=== PATIENT | female | born 1995 | race Caucasian/White ===

== ENCOUNTER → 2024-07-05 15:00 | Outpatient (REF) | payer BC, SELFPAY | LOC: PNTC 15:00 | PROVIDERS: ATTENDING PHYSICIAN Student in an Organized Health Care Education/Training Program | DX: O99.210 Obesity complicating pregnancy, unspecified trimester (principal) | CPT/HCPCS: 76801; 76813 ==

== ENCOUNTER → 2024-08-02 13:14 | Outpatient (REF) | payer BC, SELFPAY | LOC: PNTC 13:14 | PROVIDERS: ATTENDING PHYSICIAN Student in an Organized Health Care Education/Training Program | DX: O99.210 Obesity complicating pregnancy, unspecified trimester (principal) | CPT/HCPCS: 76805 ==

== ENCOUNTER → 2024-08-30 14:50 | Outpatient (REF) | payer BC, SELFPAY | LOC: PNTC 14:50 | PROVIDERS: ATTENDING PHYSICIAN Student in an Organized Health Care Education/Training Program | DX: O99.210 Obesity complicating pregnancy, unspecified trimester (principal) | CPT/HCPCS: 76811; 76817 ==

== ENCOUNTER → 2024-10-10 14:52 | Outpatient (REF) | payer BC, SELFPAY | LOC: PNTC 14:52 | PROVIDERS: ATTENDING PHYSICIAN Obstetrics & Gynecology | DX: O99.210 Obesity complicating pregnancy, unspecified trimester (principal) | CPT/HCPCS: 76816 ==

== ENCOUNTER → 2024-11-02 14:30 | Outpatient (REF) | payer BC, SELFPAY ==
--- NOTE | 2024-11-02 11:30 | PN.DIAED06 ---
Meal Plan - Gestational
- Breakfast
Gestational Diabetes Meal Plan Name: 1800 calories
Breakfast - Total Carbohydrate (grams): 30 (1 carb = 15 grams)
Breakfast - Starch Carbohydrate: 1 (carbs: starch, milk, fruit)
Breakfast - Fruit Carbohydrate: 0 (no fruit or juice before lunch)
Breakfast - Milk Carbohydrate: 1
Breakfast - Nonstarchy Vegetables: Yes
Breakfast - Meat/Protein: 1 (1 serving protein = 1 oz (7 g))
Breakfast - Fat: 2 (1 serving fat = 5 g)
- Morning Snack
Morning Snack - Total Carbohydrate (grams): 30
Morning Snack - Starch Carbohydrate: 1
Morning Snack - Fruit Carbohydrate: 0 (no fruit or juice before lunch)
Morning Snack - Milk Carbohydrate: 1
Morning Snack - Nonstarchy Vegetables: Yes
Morning Snack - Meat/Protein: 0.5
Morning Snack - Fat: 0
- Lunch
Lunch - Total Carbohydrate (grams): 45
Lunch - Starch Carbohydrate: 2
Lunch - Fruit Carbohydrate: 1
Lunch - Milk Carbohydrate: 0
Lunch - Nonstarchy Vegetables: Yes
Lunch - Meat/Protein: 2
Lunch - Fat: 1
- Afternoon Snack
Afternoon Snack - Total Carbohydrate (grams): 30
Afternoon Snack - Starch Carbohydrate: 1
Afternoon Snack - Fruit Carbohydrate: 1
Afternoon Snack - Milk Carbohydrate: 0
Afternoon Snack - Nonstarchy Vegetables: Yes
Afternoon Snack - Meat/Protein: 1
Afternoon Snack - Fat: 0
- Dinner
Dinner - Total Carbohydrate (grams): 45
Dinner - Starch Carbohydrate: 2
Dinner - Fruit Carbohydrate: 0
Dinner - Milk Carbohydrate: 1
Dinner - Nonstarchy Vegetables: Yes
Dinner - Meat/Protein: 2
Dinner - Fat: 2
- Evening Snack
Evening Snack - Total Carbohydrate (grams): 30
Evening Snack - Starch Carbohydrate: 1
Evening Snack - Fruit Carbohydrate: 0
Evening Snack - Milk Carbohydrate: 1
Evening Snack - Nonstarchy Vegetables: Yes
Evening Snack - Meat/Protein: 1
Evening Snack - Fat: 1
Notes:
BS GOALS
Fasting 60-90 (60 -95 acceptable)
1 hour after eating < 120 (< 140 acceptable)
2 hours after eating < 120
--- NOTE | 2024-11-02 15:34 | PN.DE ---
Diabetes Education
- -
11/02/2024 GESTATIONAL DIABETES CONSULT
Met with patient today for medical nutrition therapy. G3,P2, currently at 30 weeks of gestation, with an KB of 01/13/2025. She had diet controlled GSD with second .
Explained glucose metabolism in body and what occurs during to cause increase blood sugar. Discussed importance of keeping BS well controlled to avoid complications to the baby during and after (macrosomia, hypoglycemia). Discussed
macronutrients, provided with 1800 benny GDM meal plan.
Discussed physical activity, she currently does not exercise. We discussed the benefits in lowering glucose, she states she can start swimming.
She presented to the appointment with Contour Next test strips and lancets. I supplied her with Contour Next meter and lancing device. Reviewed proper testing technique, testing sites and testing pattern. She is aware to test FBS and 2 hr pp
each meal. Expected results for FBS <95 mg/dl and 2 hr pp <120 mg/dl. Noted for blood sugar of 86 mg/dL 2 hrs after lunch. Log sheet provided for her to record results, she will send a 4-day meal log with all her FBG and 2hr Post prandial glucose
numbers to this office for review. In addition, she will send all her glucose readings [facility] every Thursday.
She was encouraged to reach out should she require insulin.
== END ==
LOC: DES 14:30
PROVIDERS: ATTENDING PHYSICIAN Student in an Organized Health Care Education/Training Program
DX: O24.419 Gestational diabetes mellitus in pregnancy, unspecified control (principal)
CPT/HCPCS: 99078

== ENCOUNTER → 2024-11-23 08:36 | Outpatient (REF) | payer BC, SELFPAY | LOC: PNTC 08:36 | PROVIDERS: ATTENDING PHYSICIAN Obstetrics & Gynecology | DX: O99.210 Obesity complicating pregnancy, unspecified trimester (principal) | CPT/HCPCS: 76816 ==

== ENCOUNTER → 2024-12-07 13:55 | Outpatient (REF) | payer BC, SELFPAY | LOC: PNTC 13:55 | PROVIDERS: ATTENDING PHYSICIAN Obstetrics & Gynecology | DX: O99.210 Obesity complicating pregnancy, unspecified trimester (principal) | CPT/HCPCS: 59025; 76815 ==

== ENCOUNTER → 2024-12-14 14:01 | Outpatient (REF) | payer BC, SELFPAY | LOC: PNTC 14:01 | PROVIDERS: ATTENDING PHYSICIAN Obstetrics & Gynecology | DX: O99.210 Obesity complicating pregnancy, unspecified trimester (principal) | CPT/HCPCS: 59025; 76815 ==

== ENCOUNTER → 2024-12-21 13:56 | Outpatient (REF) | payer BC, SELFPAY | LOC: PNTC 13:56 | PROVIDERS: ATTENDING PHYSICIAN Obstetrics & Gynecology | DX: O99.210 Obesity complicating pregnancy, unspecified trimester (principal) | CPT/HCPCS: 59025; 76816 ==

== ENCOUNTER 2024-12-28 15:49 | Inpatient (IN) | payer BC, SELFPAY ==
[2024-12-28 16:16] LABS: Glucose - Point of Care 100 mg/dl (70-99)
[2024-12-28 16:19] VITALS: BP 127/77; BMI 39.0
[2024-12-28 16:36] LABS: Hematocrit 35.6 % (37.0-47.0); Hemoglobin 11.6 g/dL (12.0-16.0); Mean Corp Hgb Conc. 32.6 g/dL (33.0-37.0); Mean Corpuscular Volume 83.6 fL (81.0-99.0); Nucleated Red Blood Cells % 0 %; Platelet Count 372 10^3/uL (130-400); Red Cell Dist. Width 14.3 % (11.5-14.5)
[2024-12-28] MEDS: LR 1000 IV ×2 (16:57→23:20)
[2024-12-28] MEDS: PITOCIN 30 UNITS/NSS 500 ML IV (16:59)
[2024-12-28 20:33] LABS: Glucose - Point of Care 85 mg/dl (70-99)
[2024-12-28] MEDS: STADOL 1 MG IV (21:14)
[2024-12-28] MEDS: SUBLIMAZE 100 MCG EPIDURAL (23:21)
[2024-12-28] MEDS: FENTANYL/BUPIVACAINE 100 EPIDURAL (23:21)
[2024-12-29 00:39] LABS: Glucose - Point of Care 92 mg/dl (70-99)
[2024-12-29 02:36] LABS: Glucose - Point of Care 94 mg/dl (70-99)
[2024-12-29] MEDS: MOTRIN 600 MG PO (04:48)
[2024-12-29 07:45] LABS: Hematocrit 33.1 % (37.0-47.0); Hemoglobin 11.2 g/dL (12.0-16.0); Mean Corp Hgb Conc. 33.8 g/dL (33.0-37.0); Mean Corpuscular Volume 82.3 fL (81.0-99.0); Platelet Count 333 10^3/uL (130-400); Red Cell Dist. Width 14.3 % (11.5-14.5)
[2024-12-29] MEDS: COLACE 100 MG PO ×2 (07:47→20:06)
[2024-12-29] MEDS: SYNTHROID 50 MCG PO (07:47)
[2024-12-29 08:23] LABS: ALT (SGPT) 13 U/L (0-35); AST (SGOT) 18 U/L (14-36); Albumin 3.3 g/dl (3.5-5.0); Alkaline Phosphatase 158 U/L (38-126); Blood Urea Nitrogen 9 mg/dl (7-17); Calcium 8.5 mg/dl (8.4-10.2); Carbon Dioxide 20 mmol/L (22-30); Chloride 108 mmol/L (98-107); Estimated Creatinine Clearance > 125 ml/min; Glucose 119 mg/dl (70-99); Potassium 4.2 mmol/L (3.5-5.1); Sodium 134 mmol/L (135-145); Total Protein 6.4 g/dl (6.3-8.2); eGFR > 60.00
[2024-12-29] MEDS: TYLENOL 650 MG PO (16:28)
[2024-12-30 04:30] LABS: Hematocrit 32.5 % (37.0-47.0); Hemoglobin 10.8 g/dL (12.0-16.0)
[2024-12-30] MEDS: SYNTHROID 50 MCG PO (06:14)
[2024-12-30] MEDS: COLACE 100 MG PO (08:14)
[2024-12-30] MEDS: TYLENOL 650 MG PO ×2 (12:34→20:41)
[2024-12-30 12:51] LABS: Syphilis/T. pallidum Ab Reflex Negative (Negative)
[2024-12-30] MEDS: COLACE PO (20:41)
[2024-12-30] MEDS: MOTRIN 600 MG PO (22:04)
[2024-12-31] MEDS: SYNTHROID 50 MCG PO (05:25)
[2024-12-31] MEDS: COLACE PO (08:18)
[2024-12-31] MEDS: M-M-R II 0.5 ML SC (09:18)
== END 2024-12-31 12:59 | disposition home or self-care (01) | DRG 807 ==
LOC: LDRP 15:49
PROVIDERS: Obstetrics & Gynecology; ADMITTING PHYSICIAN Student in an Organized Health Care Education/Training Program; FAMILY PHYSICIAN Nurse Practitioner Family
PROC: 10E0XZZ Delivery of Products of Conception, External Approach (ICD-10-PCS; 2024-12-29)
PROC: 3E0234Z Introduction of Serum, Toxoid and Vaccine into Muscle, Percutaneous Approach (ICD-10-PCS; 2024-12-31)
DX: O24.420 Gestational diabetes mellitus in childbirth, diet controlled (principal); Z37.0 Single live birth; O99.284 Endocrine, nutritional and metabolic diseases complicating childbirth; E03.9 Hypothyroidism, unspecified; O99.214 Obesity complicating childbirth; O90.89 Other complications of the puerperium, not elsewhere classified; R03.0 Elevated blood-pressure reading, without diagnosis of hypertension; Z3A.37 37 weeks gestation of pregnancy; Z23 Encounter for immunization
CPT/HCPCS: 36415; 80053; 82962; 85014; 85018; 85025; 85027; 86780; 86850; 86900; 86901; 90707